=== PATIENT | male | born 1945 | race Caucasian/White ===

== ENCOUNTER 2016-08-19 18:55 | Inpatient (IN) | payer MEDICARE, BC ==
[~2016-08-19] VITALS: Ht 182.9 cm; Wt 67.0 kg
[~2016-08-19 18:55] MED LIST: ADVA250A INH; ATOR20TA42 PO; CALC.25 PO; CARB25TA PO; CARV3.125 PO; CLOP75 PO; LEVA500T33 PO; LEVO.075 PO; LOSA25TA31 PO; VITA400C28 PO; [UNRECOGNIZED DRUG - CODE] PO
[2016-08-19 19:01] VITALS: BP 103/54; PULSE 74; RESP 16; TEMP 98.1; O2SAT 98
[2016-08-19] MEDS ORDERED: ENTA1TAB PO (19:49)
[2016-08-19] MEDS ORDERED: CALC0.25 PO (19:49)
[2016-08-19] MEDS ORDERED: ASPI-110 PO (19:49)
[2016-08-19] MEDS ORDERED: LACTCAP8 PO (19:49)
[2016-08-19] MEDS ORDERED: NOVOLOG PUMP SQ (19:49)
[2016-08-19] MEDS ORDERED: VITA200013 PO (19:49)
[2016-08-19] MEDS ORDERED: CARB25TA9 PO (19:49)
[2016-08-19] MEDS ORDERED: DONE10TA7 PO (19:49)
[2016-08-19] MEDS ORDERED: ATOR40TA16 PO (19:49)
[2016-08-19] MEDS ORDERED: VITAMIN B12 IM (19:49)
[2016-08-19] MEDS ORDERED: LEVO.05 PO (19:49)
[2016-08-19 19:52] LABS: MEAN CORPUSCULAR HGB CONC 36.2 % (32.0-36.0)
--- NOTE | 2016-08-19 20:04 | PD ---
HPI Chief Complaint: Psychiatric Symptoms Time Seen by Provider: 19:20 Travel History International Travel<30 days: No Contact w/Intl Traveler<30days: No Traveled to known affect area: No History of Present Illness HPI This is a 71-year-old man who presents to the emergency department brought in by family for increasing confusion and aggressive behavior. He has a history of Parkinson's, dementia. Mental status is been deteriorating over the past couple months. Over the past several weeks patient has been having increasing confusion, aggressive behavior, being very difficult to control at home. They started 24-hour care in the past week. Despite this is been taking multiple people to control him physically, he's fallen multiple times. The reportedly just try to start him on some sort of tranquilizer sedative at night without much effect. Last night the patient's son had a driving from [place] to get him to release a nursing tech whom he grabbed and held onto for several hours apparently. Family has multiple falls but did not strike his head as family has been able to lower him to the ground. Despite the 24-hour assistance, multiple family members in the house, they do not feel that he is safe at home. History Past Medical History Narrative Medical Diabetes, on an insulin pump CAD Hypothyroidism Hypertension Parkinson's disease Dementia Social History Alcohol Use: No Tobacco Use: No (never) Allergies-Medications (Allergen,Severity, Reaction): Coded Allergies: No Known Allergies (Verified , 08/19/16) Reported Meds & Prescriptions Reported Meds & Active Scripts Active Reported [novolog pump] SQ CONTINUOUS Aspirin 81 (Aspirin) 81 Mg Tabdr 81 Mg PO DAILY Atorvastatin (Atorvastatin Calcium) 40 Mg Tab 40 Mg PO HS Probiotic (Lactobacillus Acidophilus) 1 Cap Cap 1 Cap PO DAILY Vitamin D (Cholecalciferol) 2,000 Unit Cap 1 Cap PO DAILY Calcitriol 0.25 Mcg Cap 0.25 Mcg PO DAILY Synthroid (Levothyroxine Sodium) 50 Mcg Tab 50 Mcg PO DAILY [vitamin B-12 inj] 1 Ml IM 2X/MONTH Donepezil 10 Mg Tab 10 Mg PO HS Entacapone 200 Mg Tab 200 Mg PO QID administered concomitantly with each levodopa/carbidopa dose Carbidopa-Levodopa 25-100 Mg Tab 1 Tab PO Q6HR Review of Systems Except as stated in HPI: all other systems reviewed are Neg Physical Exam Narrative GENERAL: Well-appearing 71-year-old man, no acute distress. SKIN: Focused skin assessment warm/dry. HEAD: Atraumatic. Normocephalic. EYES: Pupils equal and round. No scleral icterus. No injection or drainage. ENT: No nasal bleeding or discharge. Mucous membranes pink and moist. NECK: Trachea midline. No JVD. CARDIOVASCULAR: Regular rate and rhythm. No murmur appreciated. RESPIRATORY: No accessory muscle use. Clear to auscultation. Breath sounds equal bilaterally. GASTROINTESTINAL: Abdomen soft, non-tender, nondistended. Hepatic and splenic margins not palpable. MUSCULOSKELETAL: No obvious deformities. No clubbing. No cyanosis. No edema. NEUROLOGICAL: Awake and alert. Confused. No obvious cranial nerve deficits. Motor grossly within normal limits. Normal speech. PSYCHIATRIC: Pleasant and cooperative. Data Data Last Documented VS Vital Signs Date Time Temp Pulse Resp B/P Pulse Ox O2 Delivery O2 Flow Rate FiO2 08/19/16 19:01 98.1 74 16 103/54 98 Orders Complete Blood Count With Diff (08/19/16 19:51) Comprehensive Metabolic Panel (08/19/16 19:51) Urinalysis - C+S If Indicated (08/19/16 19:51) Diet Heart Healthy (08/20/16 Breakfast) Vital Signs (Adult) ROXIE.Q4H (08/19/16 21:17) Consult Psychiatry (08/19/16 ) Case Management Consult (08/19/16 ) Sodium Chlorid 0.9% 500 Ml Inj (Ns 500 M (08/19/16 21:30) Ondansetron Inj (Zofran Inj) (08/19/16 21:30) Bedside Glucose ROXIE.AC&HS&03 (08/19/16 21:18) Blood Glucose Goal (Criteria) (08/19/16 21:18) Hypoglycemia 51 - 69 Mg/Dl (08/19/16 21:18) Hypoglycemia 50 Mg/Dl Or < (08/19/16 21:18) Notify Dr: Other (08/19/16 21:18) Dextrose 50% In [place]ydi (Vial) Inj (D50w (Vi (08/19/16 21:30) Glucagon Inj (Glucagon Inj) (08/19/16 21:30) Low Novolog Scale (08/20/16 07:00) Diet Regular Basic (08/20/16 Breakfast) Admit Order (Ed Use Only) (08/19/16 ) Labs Laboratory Tests Test 08/19/16 20:00 White Blood Count 5.8 TH/MM3 Red Blood Count 3.42 MIL/MM3 Hemoglobin 12.0 GM/DL Hematocrit 33.0 % Mean Corpuscular Volume 96.7 FL Mean Corpuscular Hemoglobin 35.0 PG Mean Corpuscular Hemoglobin 36.2 % Concent Red Cell Distribution Width 12.6 % Platelet Count 189 TH/MM3 Mean Platelet Volume 8.8 FL Neutrophils (%) (Auto) 71.0 % Lymphocytes (%) (Auto) 20.6 % Monocytes (%) (Auto) 7.2 % Eosinophils (%) (Auto) 0.7 % Basophils (%) (Auto) 0.5 % Neutrophils # (Auto) 4.1 TH/MM3 Lymphocytes # (Auto) 1.2 TH/MM3 Monocytes # (Auto) 0.4 TH/MM3 Eosinophils # (Auto) 0.0 TH/MM3 Basophils # (Auto) 0.0 TH/MM3 CBC Comment AUTO DIFF Sodium Level 140 MEQ/L Potassium Level 4.4 MEQ/L Chloride Level 107 MEQ/L Carbon Dioxide Level 29.9 MEQ/L Anion Gap 3 MEQ/L Blood Urea Nitrogen 36 MG/DL Creatinine 2.27 MG/DL Estimat Glomerular Filtration 29 ML/MIN Rate Random Glucose 208 MG/DL Calcium Level 8.9 MG/DL Total Bilirubin 0.6 MG/DL Aspartate Amino Transf 24 U/L (AST/SGOT) Alanine Aminotransferase 10 U/L (ALT/SGPT) Alkaline Phosphatase 100 U/L Total Protein 7.1 GM/DL Albumin 4.1 GM/DL [facility] Medical Decision Making Medical Screen Exam Complete: Yes Emergency Medical Condition: Yes Interpretation(s) LABS: CBC remarkable for mild anemia. CMP is unremarkable Glucose 208 Differential Diagnosis Dementia, delirium, infection, electrolyte abnormality, other Narrative Course Medical decision making INITIAL: This 71-year-old male presents to the emergency department with altered mental status, increased dementia and delirium symptoms, and aggressive behavior. Suspect this is probably worsening underlying dementia. We'll check labs, urine, surgery for reversible causes. Facial need admission, possibly psychiatry consultation to assist with medication management. I'll have case management start speaking with the family is able to really get him to arrange for long-term memory care. FINAL: Patient worsening altered mental status, not safe at home. This is likely worsening underlying dementia. His insulin pump was removed, we'll transition sliding scale insulin. I spoke with Dr. Clifford, will admit the patient. We'll post with a sitter overnight. Probably psychiatry to see as well. Diagnosis Primary Impression: Altered mental status Hamilton Martinez MD Aug 19, 2016 20:04
[2016-08-19 20:09] LABS: AUTOMATED NEUTROPHIL # 4.1 TH/MM3 (1.8-7.7); BASOPHIL % 0.5 % (0.0-2.0); EOSINOPHIL % 0.7 % (0.0-4.0); LYMPH % 20.6 % (9.0-44.0); LYMPHOCYTE # 1.2 TH/MM3 (1.0-4.8); MEAN CELL VOLUME 96.7 FL (80.0-100.0); MONO % 7.2 % (0.0-8.0); PLATELET COUNT 189 TH/MM3 (150-450); RED BLOOD COUNT 3.42 MIL/MM3 (4.50-5.90); RED CELL DISTRIBUTION WIDTH 12.6 % (11.6-17.2); WHITE BLOOD COUNT 5.8 TH/MM3 (4.0-11.0)
[2016-08-19 20:12] LABS: HEMO FLAGS AUTO DIFF
[2016-08-19 20:24] LABS: ANION GAP 3 MEQ/L (5-15); AST (GOT) 24 U/L (15-37); BICARBONATE 29.9 MEQ/L (21.0-32.0); BLOOD UREA NITROGEN 36 MG/DL (7-18); CHLORIDE 107 MEQ/L (98-107); GLOMERULAR FILTRATION RATE 29 ML/MIN (>89); POTASSIUM 4.4 MEQ/L (3.5-5.1); SODIUM (NA) 140 MEQ/L (136-145)
[2016-08-19 20:27] LABS: ALKALINE PHOSPHATASE 100 U/L (45-117); ALT (GPT) 10 U/L (12-78); TOTAL BILIRUBIN ADULT 0.6 MG/DL (0.2-1.0)
[2016-08-19 21:00] VITALS: BP 112/52; PULSE 70; RESP 16; O2SAT 96
[2016-08-19] MEDS ORDERED: GLUCAGON 1 MG/ML VIAL OTHER PRN (21:30)
[2016-08-19] MEDS ORDERED: DEXTROSE 50% IN WATER 50 ML VIAL(D50) IV PUSH PRN (21:30)
[2016-08-19] MEDS ORDERED: ONDANSETRON HCL 4 MG/2 ML VIAL IV PUSH PRN (21:30)
[2016-08-19] MEDS ORDERED: SODIUM CHLORID 0.9% 500 ML INJ 500 ML IV ONE (21:30)
[2016-08-19 22:27] LABS: BACTERIA, URINE RARE /hpf; BLOOD, URINE LARGE (NEG); COMMENT (UR) CULTURE INDICATED; CULTURE IF INDICATED CULTURE INDICATED; GLUCOSE,URINE 300 mg/dL (NEG); HYALINE CAST, URINE 14 /lpf (RARE); KETONE, URINE NEG (NEG); NITRITE,URINE NEG (NEG); PH, URINE 5.5 (5.0-8.5)
[2016-08-19 22:32] LABS: URINE COLOR DARK-BROWN (YELLW/STRAW)
[2016-08-19 22:54] LABS: PLATELET ESTIMATE SMEAR NORMAL (NORMAL); PLATELET MORPHOLOGY NORMAL (NORMAL); SCAN/DIFF AUTO DIFF CONFIRMED
[2016-08-19 22:57] LABS: KERATOCYTES OCC (NORMAL)
[2016-08-20 00:18] VITALS: BP 147/75; PULSE 87; RESP 16; TEMP 96.7; O2SAT 96
[2016-08-20 04:04] VITALS: BP 146/72; PULSE 98; RESP 16; TEMP 96.7; O2SAT 97
[2016-08-20] MEDS ORDERED: INSULIN ASPART SUPPLEMENTAL SCALE SQ SCH (07:00)
[2016-08-20 08:00] VITALS: BP 127/65; PULSE 72; RESP 18; TEMP 96.8; O2SAT 98
[2016-08-20] MEDS ORDERED: cefTRIAXone INJ 1,000 MG in SODIUM CHLORIDE 0.9% INJ 100 ML IV SCH (08:00)
[2016-08-20] MEDS: INSULIN ASPART SUPPLEMENTAL SCALE SQ SCH ×3 (13:01→21:04)
[2016-08-20 13:35] VITALS: BP 134/63; PULSE 71; RESP 18; TEMP 96.9; O2SAT 97
[2016-08-20] MEDS ORDERED: PILL SPLITTER OTHER PRN (15:45)
--- NOTE | 2016-08-20 15:57 | PD.CONS ---
Provisional Diagnosis Admission Date Aug 19, 2016 at 21:21 [place] I. Dementia with behavioral disturbances [place] II. Deferred [place] III. Parkinsonism disease, HTN, CAD, hypothyroidism [place] IV. Progressive dementia [place] V. 45 History of Present Illness Service Psychiatry Consult Requested By Primary Care Physician Kolby Nicolas MD, PhD HPI The patient is a 71-year-old man, domicile with his in [place], with psychiatric history of dementia, no previous psychiatric hospitalizations, no previous episodes of aggressive behavior, no previous suicide attempts, medical history hypertension, diabetes mellitus, CAD, hypothyroidism, Parkinson disease, who presents to the emergency department brought in by family for increasing confusion and aggressive behavior. As per family patient has been experiencing increasing aggressive behavior in the last week. On second evaluation patient is found with his and [id number], he is calm, cooperative, pleasantly demented. Patient says hello to me is smiling, stating that he is happy to see me again. When I asked him if he has seen me before, he states "we met in [place]". He reports good mood, he says that he is happy. Patient says that he is in a restaurant with all his family. He is disoriented also in time, he states that we are May 1985. He denies pain, he denies depressive symptoms, he denies distress, he denies suicidal or homicidal ideation, he denies visual and auditory hallucinations. He is unable to recognize his sister in [facility], but he did recognize his . No agitation or aggressive behavior is observed at the moment of this evaluation. As per nurse patient has been calm and easy to deal with. As per , Grady Stallings, patient mentation is been deteriorating over the past couple months, especially in the last 3 months, but before that patient was able to function independently, to take showers, to have a pleasant conversation, to recognize close family members and friends, to watch TV, but in the last month his mentation has been deteriorating to a point that he is now 100% dependent. The aggressive behavior and agitation, along with paranoia toward caregivers and even family members is started the last 2 weeks. They started 24-hour care in the past week. Despite this is been taking multiple people to control him physically, he's fallen multiple times. The reportedly just try to start him on some sort of tranquilizer sedative at night without much effect. There are remember the name. Last night the patient's son had a driving from [place] to get him to release a manager nursing whom he grabbed and held onto for several hours apparently. Family has multiple falls but did not strike his head as family has been able to lower him to the ground. Despite the 24-hour assistance , multiple family members in the house, they do not feel that he is safe at home. Family have agreed that the patient would be safer was probably in a half-way. She agrees to restart a low dose of antipsychotic for behavior control. She clarifies that the patient doesn't have any previous psychiatric history, no previous psychiatric hospitalizations, no previous suicidal attempts. She never being an aggressive person in his life. Patient never used drugs or alcohol. Review of Systems Constitutional: DENIES: Diaphoretic episodes, Fatigue, Fever, Weight gain, Weight loss, Chills, Dizziness, Change in appetite, Night Sweats Endocrine: DENIES: Heat/cold intolerance, Polydipsia, Polyuria, Polyphagia Eyes: DENIES: Blurred vision, Diplopia, Eye inflammation, Eye pain, Vision loss , Photosensitivity, Double Vision Ears, nose, mouth, throat: DENIES: Tinnitus, Hearing loss, Vertigo, Nasal discharge, Oral lesions, Throat pain, Hoarseness, Ear Pain, Running Nose, Epistaxis, Sinus Pain, Toothache, Odynophagia Respiratory: DENIES: Apneas, Cough, Snoring, Wheezing, Hemoptysis, Sputum production, Shortness of breath Genitourinary: DENIES: Sexual dysfunction, Urinary frequency, Urinary incontinence, Urgency, Hematuria, Dysuria, Nocturia, Penile Discharge, Testicular Pain, Testicular Swelling Musculoskeletal: DENIES: Joint pain, Muscle aches, Stiffness, Joint Swelling, Back pain, Neck pain Integumentary: DENIES: Abnormal pigmentation, Nail changes, Pruritus, Rash Hematologic/lymphatic: DENIES: Bruising, Lymphadenopathy Immunologic/allergic: DENIES: Eczema, Urticaria Neurologic: DENIES: Abnormal gait, Headache, Localized weakness, Paresthesias, Seizures, Speech Problems, Tremor, Poor Balance Psychiatric: DENIES: Anxiety, Confusion, Mood changes, Depression, Hallucinations, Agitation, Suicidal Ideation, Homicidal Ideation, Delusions Past Family Social History Coded Allergies: No Known Allergies (Verified , 08/19/16) Reported Medications [novolog pump] No Conflict Check Sq Continuous 08/19/[address] (Aspirin 81)81 Mg Tabdr81 Mg PO DAILY Ref 0 08/19/16 Atorvastatin 40 Mg Tab40 Mg PO HS #30 TAB Ref 0 08/19/16 Lactobacillus Acidophilus (Probiotic)1 Cap Cap1 Cap PO DAILY #90 CAP Ref 0 08/19/16 Cholecalciferol (Vitamin D)2,000 Unit Cap1 Cap PO DAILY 08/19/16 Calcitriol 0.25 Mcg Cap0.25 Mcg PO DAILY #30 CAP Ref 0 08/19/16 Levothyroxine (Synthroid)50 Mcg Tab50 Mcg PO DAILY #30 TAB Ref 0 08/19/16 [vitamin B-12 inj] No Conflict Check1 Ml IM 2x/Month 08/19/16 Donepezil 10 Mg Tab10 Mg PO HS #30 TAB Ref 0 08/19/16 Entacapone 200 Mg Mle198 Mg PO QID #120 TAB Ref 0 administered concomitantly with each levodopa/carbidopa dose 08/19/16 Carbidopa-Levodopa 25-100 Mg Tab1 Tab PO Q6HR #90 TAB Ref 0 08/19/16 Discontinued Reported Medications Cholecalciferol (Vitamin D)400 Unit [id number] Unit PO EVERY OTHER DAY #4 Ref 0 02/14/08 Losartan Potassium (Cozaar)25 Mg Tab25 Mg PO DAILY Ref 0 02/14/08 Levothyroxine Sodium (Synthroid)75 Mcg Tab75 Mcg PO DAILY Ref 0 02/14/08 Carbidopa (Lodosyn)25 Mg Tab25 Mg PO TID Ref 0 02/14/08 Clopidogrel Bisulfate (Plavix)75 Mg Tab75 Mg PO DAILY Ref 0 02/14/08 Carvedilol 3.125 mg (Coreg 3.125 mg)3.125 Mg Tab3.125 Mg PO BID Ref 0 02/14/08 Calcitriol (Rocaltrol)0.25 Mcg Cap0.25 Mcg PO DAILY Ref 0 02/14/08 Atorvastatin (Lipitor)20 Mg Tab20 Mg PO DAILY #2 Ref 0 02/14/08 Levofloxacin (Levaquin)500 Mg Zyi153 Mg PO DAILY Ref 0 02/14/08 Fluticasone-Salmeterol (Advair Diskus 250/50)250 Mcg/50 Mcg Inhp1 Puff INH BID Ref 0 02/14/08 Carbidopa-Levodopa (Sinemet 25/100)25 Mg/100 Mg Tab1 Tab PO TID Ref 0 02/14/08 Current Medications Medications (Trade) Dose Ordered Sig/[place] Route Start Time Stop Time Status Last Admin (Zofran Inj) 4 mg Q8HR PRN IV PUSH 08/19/16 21:30 (D50w (Vial) Inj) 25 ml UNSCH PRN IV PUSH 08/19/16 21:30 Glucagon 1 mg 1 mg UNSCH PRN OTHER 08/19/16 21:30 (Rocephin Inj/NS Inj) 100 ml @ 200 mls/hr Q24H IV 08/20/16 08:00 08/20/16 09:14 Family History He denies Social History Patient was born and raised in [place], he lives with his Linette Mccabe, he has 3 kids, 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, his highest level of education he finished the school of [employer] Physical Exam On physical exam no agitation, no aggressive behavior, no tremors, no stiffness , no EPS present Vital Signs Vital Signs Date Time Temp Pulse Resp B/P Pulse Ox O2 Delivery O2 Flow Rate FiO2 08/20/16 13:35 96.9 71 18 134/63 97 08/19/16 21:00 Room Air Lab Results UTI is positive WBC 5.8, Hgb 12, HCT 33, NA 140, K 4.4, BUN 36, creatinine 2.27, AST 24, ALT 10 Mental Status Examination Appearance man, age appearing, good hygiene, hospital [facility], calm, superficially cooperative, very pleasant Speech: Unremarkable Orientation: Person Memory: Impaired (describe) Thought Process: Loose Association Thought Content: Unremarkable Hallucination Type: None Suicidal Ideation: No Previous Suicide Attempts: No Homicidal Ideation: No Previous Homicide Attempts: No Insight: Poor Judgment: Impulsive Affect: Good Mood: Appropriate Motor Activity: Normal gait Assessment & Plan Problem List: (1) Delirium due to another medical condition Assessment & Plan: On psychiatric evaluation patient presents visible cognitive impairment suggestive of moderate to severe dementia. 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 In the last week patient has been presented progressive episodes of aggressive behavior, agitation, paranoia, motorically restlessness especially at night, which could be secondary to progressive dementia or delirium due to underlying medical condition, in this case patient has a significant UTI which may account for the described neuropsychiatric symptoms. Another reason for psychotic behavior could be his medication for Parkinson disease. As per patient has short periods of lucidity during the day, but most of the time he remains disoriented in time and place, completely independent in another person for basic functions. In any case patient would benefit of a low dose of antipsychotic, even though antipsychotics can worsen parkinsonian symptoms, Seroquel is the least anti- dopaminergic antipsychotic, indicated for psychosis in Parkinson disease We'll start Seroquel 12.5 mg twice a day to help with behavioral control, will order an EKG to make sure that QTC is no prolonged. Extensive psychoeducation, motivation and support given to the patient and family members. Patient does not meet criteria for psychiatric admission at this moment. Consul appreciated. ICD Code: F05 Assessment & Plan Estimated LOS: days Donny Lu MD Aug 20, 2016 15:57
[2016-08-20] MEDS ORDERED: SODIUM CHLOR 0.9% 1000 ML INJ 1,000 ML IV SCH (16:15)
[2016-08-20] MEDS ORDERED: ACETAMINOPHEN 325 MG TAB PO PRN (16:15)
[2016-08-20] MEDS ORDERED: MAGNESIUM HYDROXIDE SUSP 30 ML CUP PO PRN (16:15)
[2016-08-20] MEDS ORDERED: ONDANSETRON HCL 4 MG/2 ML VIAL IVP PRN (16:15)
--- NOTE | 2016-08-20 16:24 | HHI.HP ---
cc: Kolby Nicolas MD PhD [facility] Service [facility] Primary Care Physician Kolby Nicolas MD, PhD Admission Diagnosis altered mental status, dementia Diagnoses: Chief Complaint: Altered mental status Travel History International Travel<30 Days: No Contact w/Intl Traveler <30 Da: No Traveled to Known Affected Are: No History of Present Illness 71-year-old white man with history of dementia, Parkinson disease was brought to the emergency room thickening to increased aggression and agitation with altered mental status per his family member, at bedside. Due to the fact that they cannot control his aggression they brought him to the urgency room. His stated 2 weeks ago, he had nephrolithiasis in which she underwent cystoscope along with a left ureter stent placement. She does not believe he has any fevers during the past week. The patient answers simple questions however could not give me his past medical history nor his current medications he's taking. He tells me he is not hurting anywhere. He is not having any stomach pains. He tolerated his lunch with no difficulty this morning. His at bedside states this morning that she took his insulin pump home. Review of Systems ROS Limitations: Poor Historian Constitutional: DENIES: Fever, Chills Respiratory: DENIES: Cough Cardiovascular: DENIES: Chest pain Gastrointestinal: DENIES: Abdominal pain Limited due to his history dementia Past Family Social History Past Medical History Parkinson's disease Dementia Delirium Insulin-dependent diabetes mellitus on insulin popping which he sees Dr. Vogt CAD Hypothyroidism hypertension hyperlipidemia Past Surgical History Cystoscope with left ureter stent placement Reported Medications [novolog pump] SQ CONTINUOUS Aspirin 81 (Aspirin) 81 Mg Tabdr 81 Mg PO DAILY Atorvastatin (Atorvastatin Calcium) 40 Mg Tab 40 Mg PO HS Probiotic (Lactobacillus Acidophilus) 1 Cap Cap 1 Cap PO DAILY Vitamin D (Cholecalciferol) 2,000 Unit Cap 1 Cap PO DAILY Calcitriol 0.25 Mcg Cap 0.25 Mcg PO DAILY Synthroid (Levothyroxine Sodium) 50 Mcg Tab 50 Mcg PO DAILY [vitamin B-12 inj] 1 Ml IM 2X/MONTH Donepezil 10 Mg Tab 10 Mg PO HS Entacapone 200 Mg Tab 200 Mg PO QID administered concomitantly with each levodopa/carbidopa dose Carbidopa-Levodopa 25-100 Mg Tab 1 Tab PO Q6HR Allergies: Coded Allergies: No Known Allergies (Verified , 08/19/16) Family History Mother has stroke Social History Does not smoke cigarettes or drink alcohol. He lives at home with his and has around the clock care, Physical Exam Vital Signs Vital Signs Date Time Temp Pulse Resp B/P Pulse Ox O2 Delivery O2 Flow Rate FiO2 08/20/16 13:35 96.9 71 18 134/63 97 08/20/16 08:00 96.8 72 18 127/65 98 08/20/16 04:04 96.7 98 16 146/72 97 08/20/16 00:18 96.7 87 16 147/75 96 08/19/16 21:00 70 16 112/52 96 Room Air 08/19/16 19:01 98.1 74 16 103/54 98 Physical Exam GENERAL: This is a well-nourished, well-developed patient, in no apparent distress. SKIN: No rashes, ecchymoses or lesions. Cool and dry. HEAD: Atraumatic. Normocephalic. No temporal or scalp tenderness. EYES: Pupils equal round and reactive. Extraocular motions intact. No scleral icterus. No injection or drainage. ENT: Nose without bleeding, purulent drainage or septal hematoma. Throat without erythema, tonsillar hypertrophy or exudate. Uvula midline. Airway patent. NECK: Trachea midline. No JVD or lymphadenopathy. Supple, nontender, no meningeal signs. CARDIOVASCULAR: Regular rate and rhythm without murmurs, gallops, or rubs. RESPIRATORY: Clear to auscultation. Breath sounds equal bilaterally. No wheezes , rales, or rhonchi. GASTROINTESTINAL: Abdomen soft, non-tender, nondistended. No hepato-splenomegaly , or palpable masses. No guarding. MUSCULOSKELETAL: Extremities without clubbing, cyanosis, or edema. No joint tenderness, effusion, or edema noted. No calf tenderness. Negative Homans sign bilaterally. NEUROLOGICAL: Awake and alert. Cranial nerves II through XII intact. Motor and sensory grossly within normal limits. Five out of 5 muscle strength in all muscle groups. Normal speech. Laboratory Laboratory Tests Test 08/19/16 08/19/16 20:00 22:00 White Blood Count 5.8 Red Blood Count 3.42 Hemoglobin 12.0 Hematocrit 33.0 Mean Corpuscular Volume 96.7 Mean Corpuscular Hemoglobin 35.0 Mean Corpuscular Hemoglobin 36.2 Concent Red Cell Distribution Width 12.6 Platelet Count 189 Mean Platelet Volume 8.8 Neutrophils (%) (Auto) 71.0 Lymphocytes (%) (Auto) 20.6 Monocytes (%) (Auto) 7.2 Eosinophils (%) (Auto) 0.7 Basophils (%) (Auto) 0.5 Neutrophils # (Auto) 4.1 Lymphocytes # (Auto) 1.2 Monocytes # (Auto) 0.4 Eosinophils # (Auto) 0.0 Basophils # (Auto) 0.0 CBC Comment AUTO DIFF Differential Comment AUTO DIFF CONFIRMED Platelet Estimate NORMAL Platelet Morphology Comment NORMAL Keratocytes OCC Sodium Level 140 Potassium Level 4.4 Chloride Level 107 Carbon Dioxide Level 29.9 Anion Gap 3 Blood Urea Nitrogen 36 Creatinine 2.27 Estimat Glomerular Filtration 29 Rate Random Glucose 208 Calcium Level 8.9 Total Bilirubin 0.6 Aspartate Amino Transf 24 (AST/SGOT) Alanine Aminotransferase 10 (ALT/SGPT) Alkaline Phosphatase 100 Total Protein 7.1 Albumin 4.1 Urine Color DARK-BROWN Urine Turbidity CLOUDY Urine pH 5.5 Urine Specific [place] 1.017 Urine Protein 100 Urine Glucose (UA) 300 Urine Ketones NEG Urine Occult Blood LARGE Urine Nitrite NEG Urine Bilirubin NEG Urine Urobilinogen LESS THAN 2.0 Urine Leukocyte Esterase MOD Urine RBC Urine WBC 31 Urine Bacteria RARE Urine Hyaline Casts 14 Microscopic Urinalysis Comment CULTURE INDICATED Date/Time Procedure Status Source Growth 08/19/16 22:00 Urine Culture - Preliminary Resulted Urine Clean Catch No growth. Result Diagram: 08/19/16199908/19/161999 Assessment and Plan Assessment and Plan 1. Acute renal failure superimposed on chronic kidney disease stage IIIdue to dehydration and poor oral intake during the past few days as patient is calm more aggressive and agitated with altered mental status. This may be due to infectious source with underlying urinary tract infection especially with a history of recent stent placement for nephrolithiasis. Will continue IV fluid hydration and monitor BUN and creatinine. 2. Encephalopathy likely due to metabolic/infectious source. Patient had a change in mental status with increased aggression superimposed on his history of chronic dementia. Since consultation with IV hydration and antibiotics, his mental status has improved per his at bedside. 3. Chronic dementia with acute changes in mental status. Resume Aricept. Psychiatry has evaluated the patient and recommended possibly low-dose antipsychotic. 4. Parkinson's diseasecontinue Sinemet and Entacapone. 5. Hyperlipidemiacontinue statin. 6. CADcontinue aspirin 7. Hypothyroidismcontinue Synthroid. 8. DVT prophylaxisLovenox. Code Status Full code Discussed Condition With and [id number] at bedside Physician Certification 2 Midnight Certification Type: Admission for Inpatient Services Order for Inpatient Services The services are ordered in accordance with Medicare regulations or non- Medicare payer requirements, as applicable. In the case of services not specified as inpatient-only, they are appropriately provided as inpatient services in accordance with the 2-midnight benchmark. Estimated LOS (days): 3 days is the estimated time the patient will need to remain in the hospital, assuming treatment plan goals are met and no additional complications. Post-Hospital Plan: Not yet determined Sara Tom MD Aug 20, 2016 16:23
[2016-08-20] MEDS ORDERED: INSULIN DETEMIR 100 UNITS/ML VIAL SQ SCH (17:00)
[2016-08-20] MEDS ORDERED: ENOXAPARIN SODIUM 30 MG/0.3 ML SYRINGE SQ SCH (17:00)
[2016-08-20 17:25] VITALS: BP 129/63; PULSE 72; RESP 18; TEMP 99.2; O2SAT 96
[2016-08-20] MEDS ORDERED: ENTACAPONE 200 MG PO SCH (18:00)
[2016-08-20] MEDS ORDERED: NON-FORMULARY DRUG (Entacapone 200 MG) PO SCH (18:00)
[2016-08-20] MEDS ORDERED: CARBIDOPA/LEVODOPA 25 MG/100 MG TAB PO SCH ×4 (18:00→18:02)
[2016-08-20 20:00] VITALS: BP 124/86; PULSE 75; RESP 18; TEMP 98.1; O2SAT 100
[2016-08-20] MEDS: CARBIDOPA/LEVODOPA 25 MG/100 MG TAB PO SCH ×2 (20:30→21:05)
[2016-08-20] MEDS: ATORVASTATIN 40 MG TAB PO SCH ×2 (21:00→21:05)
[2016-08-20] MEDS: QUEtiapine FUMARATE 25 MG TAB PO SCH ×2 (21:00→21:05)
[2016-08-20] MEDS: DONEPEZIL HCL 5 MG TAB PO SCH ×2 (21:00→21:05)
[2016-08-20] MEDS ORDERED: HALOPERIDOL LACTATE 5 MG/ML AMP IM ONE (22:00)
[2016-08-21] VITALS: BP 141/72; PULSE 92; RESP 21; TEMP 97.6; O2SAT 99
[2016-08-21] MEDS: QUEtiapine FUMARATE 25 MG TAB PO SCH ×2 (01:04→18:24)
[2016-08-21] MEDS: CARBIDOPA/LEVODOPA 25 MG/100 MG TAB PO SCH ×6 (01:04→19:46)
[2016-08-21] MEDS: DONEPEZIL HCL 5 MG TAB PO SCH ×2 (01:04→19:43)
[2016-08-21] MEDS: INSULIN ASPART SUPPLEMENTAL SCALE SQ SCH ×5 (03:00→19:47)
[2016-08-21 04:00] VITALS: BP 151/79; PULSE 78; RESP 19; TEMP 98; O2SAT 100
[2016-08-21] MEDS: LEVOTHYROXINE SODIUM 50 MCG TAB PO SCH (06:11)
[2016-08-21] MEDS: ACETAMINOPHEN 325 MG TAB PO PRN ×2 (06:11→12:15)
[2016-08-21 08:00] VITALS: BP 144/61; PULSE 86; RESP 20; TEMP 96.3; O2SAT 99
[2016-08-21 08:44] LABS: BICARBONATE 29.5 MEQ/L (21.0-32.0); POTASSIUM 4.2 MEQ/L (3.5-5.1)
--- NOTE | 2016-08-21 10:43 | HHI.PR ---
Subjective Remarks Patient having worsening agitation overnight, pulled out IV and was placed in restraints. Objective Vitals Vital Signs Date Time Temp Pulse Resp B/P Pulse Ox O2 Delivery O2 Flow Rate FiO2 08/21/16 08:00 96.3 86 20 144/61 99 08/21/16 04:00 98.0 78 19 151/79 100 08/21/16 00:00 97.6 92 21 141/72 99 08/20/16 20:00 98.1 75 18 124/86 100 08/20/16 17:25 99.2 72 18 129/63 96 08/20/16 13:35 96.9 71 18 134/63 97 I/O 08/20/16 08/20/16 08/20/16 08/21/16 08/21/16 08/21/16 07:00 15:00 23:00 07:00 15:00 23:00 Intake Total 200 ml 240 ml 240 ml 240 ml Output Total 600 ml 700 ml 200 ml 300 ml Balance -400 ml -460 ml 40 ml 240 ml -300 ml Intake Oral 200 ml 240 ml 240 ml 240 ml Output Urine Total 600 ml 700 ml 200 ml 300 ml # Voids 1 1 1 # Bowel Movements 0 Result Diagram: 08/19/16199908/21/16 0749 Objective Remarks GENERAL: This is a elderly adult male, appearing stated age. Patient drowsy at this time. CARDIOVASCULAR: Regular rate and rhythm RESPIRATORY: Clear to auscultation. Breath sounds equal bilaterally. No wheezes , rales, or rhonchi. GASTROINTESTINAL: Abdomen soft, non-tender, nondistended. Normal active bowel sounds MUSCULOSKELETAL: Extremities without clubbing, cyanosis, or edema. Right arm having dried blood present over previous IV site. NEURO: Alert, point questioning, having short responses. Moves all ext x4 Urinary Catheter: No Vascular Central Line Catheter: No A/P Problem List: (1) Delirium due to another medical condition ICD Code: F05 Status: Acute Assessment and Plan Patient is a 71-year-old male, history of chronic dementia, Parkinson's disease , coming to hospital for acute worsening mental status, frequent falls for which states she is unable to continue taking care of him at home. Acute renal failure superimposed on chronic kidney disease stage IIIdue to dehydration and poor oral intake during the past few days. GFR improved from 29 - > 39 from admission. -Continue IV fluids -Monitor BMP Encephalopathy likely due to metabolic/infectious source. Patient had a change in mental status with increased aggression superimposed on his history of chronic dementia. Element of sundowning present; patient having decompensation overnight requiring restraints be placed. Appreciate psychiatry input. Seroquel given at 1 am, after patient was already agitated, need to attempt giving earlier. -Low threshold for sepsis workup -Patient receiving Rocephin 1 prior to removing IV, will discontinue Rocephin -Cipro -Consult PT, OT -Sundowning precautions -Per psychiatry recommendations, Seroquel 12.5 mg bid at 700, 1900 -Benign lung exam -Urine culture with no growth 2 days -Repeat UA -CM to assist with placement Chronic dementia with acute changes in mental status. -Resume Aricept. -Psychiatry has evaluated the patient and recommended possibly low-dose antipsychotic. Parkinson's disease continue Sinemet and Entacapone. Hyperlipidemia continue statin. CAD continue aspirin Hypothyroidism continue Synthroid. DVT prophylaxis Lovenox. Diet: Diabetic diet Discharge Planning pending placement, CM consulted Roslyn De Santiago MD Aug 21, 2016 10:43
[2016-08-21] MEDS ORDERED: QUEtiapine FUMARATE 25 MG TAB PO ONE (11:00)
--- NOTE | 2016-08-21 11:29 | OTSOAPIP ---
TIME SESSION COMPLETED: 1000 TREATMENT TIME: 0 MINS. CHART REVIEWED. PATIENT WAS ADMITTED WITH ALTERED MENTAL STATUS, AGGRESSIVE DEMENTIA PATIENT FOUND IN BED A SLEEP WITH SPOUSE PRESENT. SPOUSE WAS EDUCATED ON OCCUPATIONAL THERAPY INTERVENTION. SPOUSE REQUESTED TO HOLD TREATMENT TODAY TO DUE TO PATIENT HAVING A BAD NIGHT AND WOULD LIKE PATIENT TO REST. PLAN NO TREATMENT RENDERED PER SPOUSE REQUEST. PATIENT TO BE SEEN NEXT TREATMENT DAY. Therapist: SARA DE LA CRUZ/[facility] on file
[2016-08-21] MEDS: ASPIRIN EC 81 MG TABEC PO SCH (11:53)
[2016-08-21 13:00] VITALS: BP 118/59; PULSE 72; RESP 18; TEMP 96.9; O2SAT 98
[2016-08-21 16:48] LABS: BACTERIA, URINE OCC /hpf
[2016-08-21 16:51] LABS: BLOOD, URINE LARGE (NEG); GLUCOSE,URINE 300 mg/dL (NEG); KETONE, URINE NEG (NEG); NITRITE,URINE NEG (NEG); PH, URINE 5.5 (5.0-8.5)
[2016-08-21 16:53] LABS: URINE COLOR LIGHT-RED (YELLW/STRAW)
[2016-08-21] MEDS: ENOXAPARIN SODIUM 40 MG/0.4 ML SYRINGE SQ SCH (17:14)
[2016-08-21 17:30] VITALS: BP 131/61; PULSE 68; RESP 20; TEMP 97.5; O2SAT 100
[2016-08-21] MEDS: ENTACAPONE 200 MG PO SCH ×2 (17:34→19:43)
[2016-08-21] MEDS: CIPROFLOXACIN 500 MG TAB PO SCH ×2 (18:25→19:37)
[2016-08-21] MEDS: ATORVASTATIN 40 MG TAB PO SCH (19:43)
[2016-08-21 20:00] VITALS: BP 145/66; PULSE 73; RESP 18; TEMP 97; O2SAT 98
[2016-08-21 21:07] LABS: MEAN CORPUSCULAR HGB CONC 36.5 % (32.0-36.0)
[2016-08-22] VITALS: BP 141/60; PULSE 65; RESP 17; TEMP 97.1; O2SAT 98
[2016-08-22] MEDS: INSULIN ASPART SUPPLEMENTAL SCALE SQ SCH ×5 (03:13→20:18)
[2016-08-22 04:00] VITALS: BP 143/65; PULSE 71; RESP 18; TEMP 97; O2SAT 99
[2016-08-22] MEDS: LEVOTHYROXINE SODIUM 50 MCG TAB PO SCH (06:27)
[2016-08-22] MEDS: QUEtiapine FUMARATE 25 MG TAB PO SCH ×2 (06:27→18:00)
[2016-08-22 06:29] LABS: BICARBONATE 31.8 MEQ/L (21.0-32.0); POTASSIUM 3.9 MEQ/L (3.5-5.1)
[2016-08-22 06:34] LABS: AUTOMATED NEUTROPHIL # 2.2 TH/MM3 (1.8-7.7); BASOPHIL % 0.8 % (0.0-2.0); EOSINOPHIL # 0.1 TH/MM3 (0-0.4); LYMPH % 27.9 % (9.0-44.0); LYMPHOCYTE # 1.1 TH/MM3 (1.0-4.8); MEAN CELL VOLUME 101.3 FL (80.0-100.0); NEUT % 57.3 % (16.0-70.0); PLATELET COUNT 160 TH/MM3 (150-450); RED BLOOD COUNT 2.86 MIL/MM3 (4.50-5.90); RED CELL DISTRIBUTION WIDTH 12.3 % (11.6-17.2); WHITE BLOOD COUNT 3.9 TH/MM3 (4.0-11.0)
[2016-08-22 06:47] LABS: HEMO FLAGS AUTO DIFF
[2016-08-22] MEDS: CIPROFLOXACIN 500 MG TAB PO SCH ×2 (07:57→20:10)
[2016-08-22] MEDS: ASPIRIN EC 81 MG TABEC PO SCH (07:57)
[2016-08-22] MEDS: ENTACAPONE 200 MG PO SCH ×4 (07:57→20:09)
[2016-08-22] MEDS: CARBIDOPA/LEVODOPA 25 MG/100 MG TAB PO SCH ×4 (07:58→20:11)
[2016-08-22 08:00] VITALS: BP 117/54; PULSE 67; RESP 18; TEMP 97.6; O2SAT 100
--- NOTE | 2016-08-22 09:10 | HHI.PR ---
Subjective Remarks No acute events overnight. Afebrile, vital signs stable. The patient very confused during the interview. He is not oriented to time or place. He states he wants the "keys to the office." Currently in soft restraints. Objective Vitals Vital Signs Date Time Temp Pulse Resp B/P Pulse Ox O2 Delivery O2 Flow Rate FiO2 08/22/16 08:00 97.6 67 18 117/54 100 08/22/16 04:00 97.0 71 18 143/65 99 08/22/16 00:00 97.1 65 17 141/60 98 08/21/16 20:00 97.0 73 18 145/66 98 08/21/16 17:30 97.5 68 20 131/61 100 08/21/16 13:00 96.9 72 18 118/59 98 I/O 08/21/16 08/21/16 08/21/16 08/22/16 08/22/16 08/22/16 07:00 15:00 23:00 07:00 15:00 23:00 Intake Total 240 ml 840 ml 720 ml 240 ml Output Total 1100 ml 475 ml 850 ml Balance 240 ml -260 ml 245 ml -610 ml Intake Oral 240 ml 840 ml 720 ml 240 ml Output Urine Total 1100 ml 475 ml 850 ml # Voids 1 Result Diagram: 08/22/16 0545 08/22/16 0545 Objective Remarks GENERAL: This is a elderly adult male, appearing stated age. Patient drowsy at this time. CARDIOVASCULAR: Regular rate and rhythm RESPIRATORY: Clear to auscultation. Breath sounds equal bilaterally. No wheezes , rales, or rhonchi. GASTROINTESTINAL: Abdomen soft, non-tender, nondistended. Normal active bowel sounds MUSCULOSKELETAL: Extremities without clubbing, cyanosis, or edema. Right arm having dried blood present over previous IV site. NEURO: Oriented only to self. Moves all ext x4 A/P Problem List: (1) Delirium due to another medical condition ICD Code: F05 Status: Acute Assessment and Plan Patient is a 71-year-old male, history of chronic dementia, Parkinson's disease , coming to hospital for acute worsening mental status, frequent falls for which states she is unable to continue taking care of him at home. Acute renal failure superimposed on chronic kidney disease stage IIIdue to dehydration and poor oral intake during the past few days. GFR improved from 29 - > 42 from admission. -Monitor BMP Encephalopathy likely due to metabolic/infectious source. Patient had a change in mental status with increased aggression superimposed on his history of chronic dementia. Element of sundowning present; patient having decompensation overnight requiring restraints be placed. Appreciate psychiatry input. -Low threshold for sepsis workup -Patient receiving Rocephin 1 prior to removing IV, will discontinue Rocephin -Cipro -Consult PT, OT -Sundowning precautions -Per psychiatry recommendations, Seroquel 12.5 mg bid at 700, 1900 -Benign lung exam -Urine culture with no growth 2 days -Repeat UA showed occasional bacteria, 15 WBCs and small leukocyte esterase -CM to assist with placement Chronic dementia with acute changes in mental status. -Resume Aricept. -Psychiatry has evaluated the patient and recommended possibly low-dose antipsychotic. Parkinson's disease continue Sinemet and Entacapone. Hyperlipidemia continue statin. CAD continue aspirin Hypothyroidism continue Synthroid. DVT prophylaxis Lovenox. Diet: Diabetic diet Discharge Planning pending placement, CM consulted Mckayla Collado MD R3 Aug 22, 2016 09:10
[2016-08-22 09:59] LABS: SCAN/DIFF AUTO DIFF CONFIRMED
--- NOTE | 2016-08-22 10:31 | EKG ---
Date Performed: 08/20/2016 Time Performed: 17:59:41 PTAGE: 71 years EKG: Sinus rhythm NORMAL ECG Compared to prior tracing no significant change PREVIOUS TRACING : 02/12/2008 20.39 DOCTOR: Charisma Romero Interpretating Date/Time 08/22/2016 10:26:23
[2016-08-22 12:00] VITALS: BP 98/53; PULSE 64; RESP 16; TEMP 96.5; O2SAT 100
[2016-08-22 17:00] VITALS: BP 115/59; PULSE 66; RESP 16; TEMP 96.8; O2SAT 100
[2016-08-22] MEDS: ENOXAPARIN SODIUM 40 MG/0.4 ML SYRINGE SQ SCH (17:41)
[2016-08-22 20:00] VITALS: BP 104/51; PULSE 76; RESP 16; TEMP 96.8; O2SAT 96
[2016-08-22] MEDS: INSULIN DETEMIR 100 UNITS/ML VIAL SQ SCH (20:10)
[2016-08-22] MEDS: ATORVASTATIN 40 MG TAB PO SCH (20:10)
[2016-08-22] MEDS: DONEPEZIL HCL 5 MG TAB PO SCH (20:10)
[2016-08-23] VITALS: BP 98/53; PULSE 77; RESP 16; TEMP 97; O2SAT 96
[2016-08-23] MEDS: INSULIN ASPART SUPPLEMENTAL SCALE SQ SCH ×3 (02:55→11:22)
[2016-08-23 04:00] VITALS: BP 95/52; PULSE 71; RESP 18; TEMP 96.6; O2SAT 98
[2016-08-23] MEDS: LEVOTHYROXINE SODIUM 50 MCG TAB PO SCH (05:21)
[2016-08-23] MEDS: QUEtiapine FUMARATE 25 MG TAB PO SCH (05:22)
[2016-08-23 07:15] LABS: BICARBONATE 27.3 MEQ/L (21.0-32.0); POTASSIUM 4.6 MEQ/L (3.5-5.1)
--- NOTE | 2016-08-23 07:26 | HHI.PR ---
Subjective Remarks In bed, says he feels weak. No fevers or chills. Says she has sob, sattign well on room air. No cough. No n/v/d/c. Objective Vitals Vital Signs Date Time Temp Pulse Resp B/P Pulse Ox O2 Delivery O2 Flow Rate FiO2 08/23/16 04:00 96.6 71 18 95/52 98 08/23/16 00:00 97.0 77 16 98/53 96 08/22/16 20:00 96.8 76 16 104/51 96 08/22/16 17:00 96.8 66 16 115/59 100 08/22/16 12:00 96.5 64 16 98/53 100 08/22/16 08:00 97.6 67 18 117/54 100 I/O 08/22/16 08/22/16 08/22/16 08/23/16 08/23/16 08/23/16 07:00 15:00 23:00 07:00 15:00 23:00 Intake Total 240 ml 300 ml 480 ml 240 ml Output Total 850 ml 200 ml 550 ml 200 ml Balance -610 ml 100 ml -70 ml 40 ml Intake Oral 240 ml 300 ml 480 ml 240 ml Output Urine Total 850 ml 200 ml 550 ml 200 ml # Bowel Movements 1 1 Result Diagram: 08/22/16 0545 08/23/16 0627 Objective Remarks GENERAL: This is a well-nourished, well-developed patient, in no apparent distress. SKIN: No rashes, ecchymoses or lesions. Cool and dry. HEAD: Atraumatic. Normocephalic. No temporal or scalp tenderness. EYES: Pupils equal round and reactive. Extraocular motions intact. No scleral icterus. No injection or drainage. ENT: Nose without bleeding, purulent drainage or septal hematoma. Throat without erythema, tonsillar hypertrophy or exudate. Uvula midline. Airway patent. NECK: Trachea midline. No JVD or lymphadenopathy. Supple, nontender, no meningeal signs. CARDIOVASCULAR: Regular rate and rhythm without murmurs, gallops, or rubs. RESPIRATORY: Clear to auscultation. Breath sounds equal bilaterally. No wheezes , rales, or rhonchi. GASTROINTESTINAL: Abdomen soft, non-tender, nondistended. No hepato-splenomegaly , or palpable masses. No guarding. MUSCULOSKELETAL: Extremities without clubbing, cyanosis, or edema. No joint tenderness, effusion, or edema noted. No calf tenderness. Negative Homans sign bilaterally. NEUROLOGICAL: Awake and alert. Cranial nerves II through XII intact. Motor and sensory grossly within normal limits. Five out of 5 muscle strength in all muscle groups. Normal speech. A/P Problem List: (1) Delirium due to another medical condition ICD Code: F05 Status: Acute Assessment and Plan Patient is a 71-year-old male, history of chronic dementia, Parkinson's disease , coming to hospital for acute worsening mental status, frequent falls for which states she is unable to continue taking care of him at home. Acute renal failure superimposed on chronic kidney disease stage IIIdue to dehydration and poor oral intake during the past few days. GFR improving -Monitor BMP Encephalopathy likely due to metabolic/infectious source. Patient had a change in mental status with increased aggression superimposed on his history of chronic dementia. Element of sundowning present; patient having decompensation overnight requiring restraints be placed. Appreciate psychiatry input. -Low threshold for sepsis workup -Patient receiving Rocephin 1 prior to removing IV, will discontinue Rocephin -Cipro -Consult PT, OT -Sundowning precautions -Per psychiatry recommendations, Seroquel 12.5 mg bid at 700, 1900 -Benign lung exam -Urine culture with no growth 2 days -Repeat UA showed occasional bacteria, 15 WBCs and small leukocyte esterase -CM to assist with placement Chronic dementia with acute changes in mental status. -Resume Aricept. -Psychiatry has evaluated the patient and recommended possibly low-dose antipsychotic. Parkinson's disease continue Sinemet and Entacapone. Hyperlipidemia continue statin. CAD continue aspirin Hypothyroidism continue Synthroid. DVT prophylaxis Lovenox. Diet: Diabetic diet Discharge Planning pending placement, CM consulted Yaritza Russell MD Aug 23, 2016 07:26
[2016-08-23] MEDS ORDERED: SODIUM CHLOR 0.45% 1000 ML INJ 1,000 ML IV SCH (07:30)
[2016-08-23 08:00] VITALS: BP 114/45; PULSE 70; RESP 12; TEMP 97.4; O2SAT 98
[2016-08-23] MEDS: ASPIRIN EC 81 MG TABEC PO SCH (08:43)
[2016-08-23] MEDS: ENTACAPONE 200 MG PO SCH ×2 (08:43→12:51)
[2016-08-23] MEDS: INSULIN DETEMIR 100 UNITS/ML VIAL SQ SCH (08:43)
[2016-08-23] MEDS: CARBIDOPA/LEVODOPA 25 MG/100 MG TAB PO SCH ×2 (08:43→12:51)
[2016-08-23] MEDS ORDERED: QUET1TAB7 PO (09:33)
--- NOTE | 2016-08-23 09:34 | HHI.DS ---
Discharge Summary Admission Date Aug 20, 2016 at 17:01 Discharge Date: Aug 23, 2016 Admitting Diagnosis altered mental status, dementia (1) Delirium due to another medical condition ICD Code: F05 Diagnosis: Principal Procedures none Brief History - From Admission 71-year-old white man with history of dementia, Parkinson disease was brought to the emergency room thickening to increased aggression and agitation with altered mental status per his family member, at bedside. Due to the fact that they cannot control his aggression they brought him to the urgency room. His stated 2 weeks ago, he had nephrolithiasis in which she underwent cystoscope along with a left ureter stent placement. She does not believe he has any fevers during the past week. The patient answers simple questions however could not give me his past medical history nor his current medications he's taking. He tells me he is not hurting anywhere. He is not having any stomach pains. He tolerated his lunch with no difficulty this morning. His at bedside states this morning that she took his insulin pump home. CBC/BMP: 08/22/16 0545 08/23/16 0627 Significant Findings Laboratory Tests Test 08/21/16 08/21/16 08/22/16 08/22/16 07:49 16:00 05:45 19:03 Chloride Level 110 MEQ/L 109 MEQ/L (98-107) (98-107) Anion Gap 3 MEQ/L (5-15) 0 MEQ/L (5-15) Blood Urea Nitrogen 29 MG/DL (7-18) 21 MG/DL (7-18) Creatinine 1.73 MG/DL 1.61 MG/DL (0.60-1.30) (0.60-1.30) Estimat Glomerular Filtration 39 ML/MIN (>89) 42 ML/MIN (>89) Rate Random Glucose 133 MG/DL 166 MG/DL 484 MG/DL (74-106) (74-106) (74-106) Urine Color LIGHT-RED (YELLW/STRAW) Urine Turbidity HAZY (CLEAR) Urine Protein 30 mg/dL (NEG-TRACE) Urine Glucose (UA) 300 mg/dL (NEG) Urine Occult Blood LARGE (NEG) Urine Leukocyte Esterase SMALL (NEG) Urine WBC 15 /hpf (0-5) Urine Bacteria OCC /hpf (NONE) Urine Yeast (Budding) FEW (NONE) White Blood Count 3.9 TH/MM3 (4.0-11.0) Red Blood Count 2.86 MIL/MM3 (4.50-5.90) Hemoglobin 10.6 GM/DL (13.0-17.0) Hematocrit 29.0 % (39.0-51.0) Mean Corpuscular Volume 101.3 FL (80.0-100.0) Mean Corpuscular Hemoglobin 37.0 PG (27.0-34.0) Mean Corpuscular Hemoglobin 36.5 % Concent (32.0-36.0) Monocytes (%) (Auto) 11.0 % (0.0-8.0) Test 08/23/16 06:27 Blood Urea Nitrogen 37 MG/DL (7-18) Creatinine 2.44 MG/DL (0.60-1.30) Estimat Glomerular Filtration 26 ML/MIN (>89) Rate PE at Discharge GENERAL: This is a elderly adult male, appearing stated age. Patient drowsy at this time. CARDIOVASCULAR: Regular rate and rhythm RESPIRATORY: Clear to auscultation. Breath sounds equal bilaterally. No wheezes , rales, or rhonchi. GASTROINTESTINAL: Abdomen soft, non-tender, nondistended. Normal active bowel sounds MUSCULOSKELETAL: Extremities without clubbing, cyanosis, or edema. Right arm having dried blood present over previous IV site. NEURO: Oriented only to self. Moves all ext x4 Hospital Course Patient is a 71-year-old male, history of chronic dementia, Parkinson's disease , coming to hospital for acute worsening mental status, frequent falls for which states she is unable to continue taking care of him at home. Acute renal failure superimposed on chronic kidney disease stage IIIdue to dehydration and poor oral intake during the past few days. GFR improving -Monitor BMP Encephalopathy likely due to metabolic/infectious source. Patient had a change in mental status with increased aggression superimposed on his history of chronic dementia. Element of sundowning present; patient having decompensation overnight requiring restraints be placed. Appreciate psychiatry input. -Low threshold for sepsis workup -Patient receiving Rocephin 1 prior to removing IV, will discontinue Rocephin -Cipro -Consult PT, OT -Sundowning precautions -Per psychiatry recommendations, Seroquel 12.5 mg bid at 700, 1900 -Benign lung exam -Urine culture with no growth 2 days -Repeat UA showed occasional bacteria, 15 WBCs and small leukocyte esterase -CM to assist with placement Chronic dementia with acute changes in mental status. -Resume Aricept. -Psychiatry has evaluated the patient and recommended possibly low-dose antipsychotic. Parkinson's disease continue Sinemet and Entacapone. Hyperlipidemia continue statin. CAD continue aspirin Hypothyroidism continue Synthroid. DVT prophylaxis Lovenox. Diet: Diabetic diet Discharge Planning CM consulted [facility]. Patient evaluated for inpatient rehab. Discharged to inpatient rehab in stable condition, to follow up as OP with PCP and consultants. Pt Condition on Discharge: Stable Discharge Disposition: Rehab Inpatient Discharge Time: > 30 minutes Discharge Instructions DIET: Follow Instructions for: Heart Healthy Diet, Diabetic Diet Follow up Referrals: PCP Follow-up - 3-5 Days New Medications: Quetiapine (Quetiapine) 25 Mg Tab 12.5 MG PO Q12H psychosis #60 TAB Continued Medications: Aspirin DR (Aspirin 81) 81 Mg Tabdr 81 MG PO DAILY Ref 0 TAB Atorvastatin (Atorvastatin) 40 Mg Tab 40 MG PO HS Cholesterol Management #30 Ref 0 TAB Calcitriol (Calcitriol) 0.25 Mcg Cap 0.25 MCG PO DAILY Calcium Supplement #30 Ref 0 CAP Carbidopa-Levodopa (Carbidopa-Levodopa) 25-100 Mg Tab 1 TAB PO Q6HR Parkinson Disease Mgmt #90 Ref 0 TAB Cholecalciferol (Vitamin D) 2,000 Unit Cap 1 CAP PO DAILY Donepezil (Donepezil) 10 Mg Tab 10 MG PO HS Dementia #30 Ref 0 TAB Entacapone (Entacapone) 200 Mg Tab 200 MG PO QID administered concomitantly with each levodopa/carbidopa dose Parkinson Disease Mgmt #120 Ref 0 TAB Lactobacillus Acidophilus (Probiotic) 1 Cap Cap 1 CAP PO DAILY Nutritional Supplement #90 Ref 0 CAP Levothyroxine (Synthroid) 50 Mcg Tab 50 MCG PO DAILY Thyroid #30 Ref 0 TAB ([novolog pump]) SQ CONTINUOUS Blood Sugar Management ([vitamin B-12 inj]) 1 ML IM 2x/Month Yaritza Russell MD Aug 23, 2016 09:34
[2016-08-23 10:17] LABS: AUTOMATED NEUTROPHIL # 4.2 TH/MM3 (1.8-7.7); BASOPHIL % 0.5 % (0.0-2.0); EOSINOPHIL # 0.1 TH/MM3 (0-0.4); EOSINOPHIL % 0.9 % (0.0-4.0); HEMO FLAGS DIFF FINAL; LYMPH % 15.7 % (9.0-44.0); LYMPHOCYTE # 0.9 TH/MM3 (1.0-4.8); MEAN CELL VOLUME 99.7 FL (80.0-100.0); MEAN CORPUSCULAR HEMOGLOBIN 35.2 PG (27.0-34.0); MEAN CORPUSCULAR HGB CONC 35.2 % (32.0-36.0); MONO % 9.2 % (0.0-8.0); NEUT % 73.7 % (16.0-70.0); PLATELET COUNT 146 TH/MM3 (150-450); RED BLOOD COUNT 2.91 MIL/MM3 (4.50-5.90); RED CELL DISTRIBUTION WIDTH 12.5 % (11.6-17.2); WHITE BLOOD COUNT 5.8 TH/MM3 (4.0-11.0)
[2016-08-23 12:00] VITALS: BP 112/63; PULSE 76; RESP 21; TEMP 97
[2016-09-02] MEDS ORDERED: [UNRECOGNIZED DRUG - OTHER] (12:13)
[2016-09-02] MEDS ORDERED: WHEEMIS3 (12:13)
[2016-09-02] MEDS ORDERED: VITA200013 PO ×2 (14:20→15:59)
[2016-09-02] MEDS ORDERED: LEVEMIR SQ ×4 (14:20→15:59)
[2016-09-02] MEDS ORDERED: ALPR.25 PO ×2 (14:20→15:59)
[2016-09-02] MEDS ORDERED: ASPI-110 PO ×2 (14:20→15:59)
[2016-09-02] MEDS ORDERED: CARB25TA9 PO ×2 (14:20→15:59)
[2016-09-02] MEDS ORDERED: ENTA1TAB PO ×2 (14:20→15:59)
[2016-09-02] MEDS ORDERED: DONE10TA7 PO ×2 (14:20→15:59)
[2016-09-02] MEDS ORDERED: CALC0.25 PO ×2 (14:20→15:59)
[2016-09-02] MEDS ORDERED: LEVO.05 PO ×2 (14:20→15:59)
[2016-09-02] MEDS ORDERED: ATOR40TA16 PO ×2 (14:20→15:59)
[2016-09-03] MEDS ORDERED: NOVOLOGP2 SQ (12:46)
== END 2016-08-23 16:02 | DRG 56 ==
LOC: NEPC 18:55 → INTOOBSV 21:21 → EEVIPCON 21:21 → NEDA 21:21 → HOCB 23:48 → OBSVTOIN 08-20 17:01
PROVIDERS: ADMIT Hospitalist; ATTEND Hospitalist
DX: G20 Parkinson's disease (principal); G93.41 Metabolic encephalopathy; N17.9 Acute kidney failure, unspecified; F02.81 Dementia in other diseases classified elsewhere, unspecified severity, with behavioral disturbance; F05 Delirium due to known physiological condition; N39.0 Urinary tract infection, site not specified; E11.22 Type 2 diabetes mellitus with diabetic chronic kidney disease; N18.3 Chronic kidney disease, stage 3 (moderate); E86.0 Dehydration; E03.9 Hypothyroidism, unspecified; I25.10 Atherosclerotic heart disease of native coronary artery without angina pectoris; I12.9 Hypertensive chronic kidney disease with stage 1 through stage 4 chronic kidney disease, or unspecified chronic kidney disease; R29.6 Repeated falls; Z96.41 Presence of insulin pump (external) (internal); Z87.442 Personal history of urinary calculi; E78.5 Hyperlipidemia, unspecified; R06.02 Shortness of breath; Z78.1 Physical restraint status; Z79.4 Long term (current) use of insulin
CPT/HCPCS: 80048; 80053; 81001; 82947; 82948; 85025; 87086; 93005; 99284; J0696; J1630; J1650; J1815; J7030; J7040